=== PATIENT | male | born 1975 | race Caucasian/White ===

== ENCOUNTER 2022-01-02 08:55 | Emergency (ER) | payer SELFPAY ==
[~2022-01-02] VITALS: Ht 177.8 cm; Wt 89.8 kg
[~2022-01-02 08:55] MED LIST: SODIUM CHLORIDE FLUSH 10 ML SYR IV PRN; Z.0.CIPRO500 MG; Z.0.FLAGYL500 MG; Z.0.PRINIVIL20 MG PO; Z.0.ZOFRAN4 MG
[2022-01-02] MEDS ORDERED: ONDANSETRON HCL INJ 2MG/ML 2ML 2 MG/ML VIAL IV STA (09:12)
[2022-01-02] MEDS ORDERED: SODIUM CHLORIDE 0.9% 1000ML 1,000 ML IV ONE (09:15)
[2022-01-02 09:31] LABS: BASOPHILS % 0.2 % (0.0-1.0); HEMATOCRIT 49.7 % (38.2-49.6); HEMOGLOBIN 17.2 g/dL (14.0-18.0); LYMPHOCYTES # (AUTO) 1.8 (1.0-3.2); LYMPHOCYTES % 10.8 % (18.0-39.1); MEAN CORPUSCULAR HEMOGLOBIN 30.8 pg (28-32); MEAN CORPUSCULAR HGB CONC 34.6 g/dL (31-35); MEAN CORPUSCULAR VOLUME 89.1 fL (81-99); MONOCYTES # (AUTO) 1.5 (0.2-0.8); MONOCYTES % 8.9 % (4.4-11.3); NEUTROPHILS # (AUTO) 13.5 (2.1-6.9); NEUTROPHILS % 79.8 % (38.7-80.0); PLATELET COUNT 429 x10e3/uL (140-360); RED BLOOD COUNT 5.58 x10e6/uL (4.3-5.7); RED CELL DISTRIBUTION WIDTH 11.9 % (11.7-14.4)
[2022-01-02 10:22] LABS: ALBUMIN 4.1 g/dL (3.5-5.0); ALBUMIN/GLOBULIN RATIO 1.1 (0.8-2.0); ANION GAP 19.6 mmol/L (8-16); CALCIUM 9.7 mg/dL (8.4-10.2); CREATININE, SERUM 1.06 mg/dL (0.72-1.25); POTASSIUM 3.6 mmol/L (3.5-5.1)
[2022-01-02] MEDS ORDERED: IOPAMIDOL 370 MG/ML 100 ML INFUS..BTL INJ ONE ×2 (10:52→12:10)
[2022-01-02] MEDS ORDERED: ONDANSETRON ODT4 MG PO (11:23)
[2022-01-02 12:07] LABS: CLARITY,URINE CLEAR (CLEAR); COLOR,URINE YELLOW (YELLOW); KETONES,URINE TRACE (NEGATIVE); LEUKOCYTE ESTERASE ,URINE NEGATIVE (NEGATIVE); NITRITE,URINE NEGATIVE (NEGATIVE); PROTEIN,URINE DIPSTICK NEGATIVE (NEGATIVE); URINE UROBILINOGEN 1 mg/dL (0.2 - 1)
== END 2022-01-02 12:35 | disposition home or self-care (01) ==
LOC: ER 09:02
DX: R11.2 Nausea with vomiting, unspecified (principal); E86.0 Dehydration; K57.90 Diverticulosis of intestine, part unspecified, without perforation or abscess without bleeding
CPT/HCPCS: 36415; 74177; 80053; 81001; 83690; 85025; 99284; J2405; J7030; Q9967

== ENCOUNTER 2022-06-03 17:49 | Emergency (ER) | payer BC ==
[~2022-06-03] VITALS: Ht 177.8 cm; Wt 89.8 kg
[~2022-06-03 17:49] MED LIST changes: +ONDANSETRON ODT4 MG PO; -SODIUM CHLORIDE FLUSH 10 ML SYR IV PRN
[2022-06-03] MEDS ORDERED: ONDANSETRON HCL INJ 2MG/ML 2ML 2 MG/ML VIAL IV STA ×2 (18:05→18:35)
[2022-06-03] MEDS ORDERED: SODIUM CHLORIDE 0.9% 1000ML 1,000 ML IV SCH (18:15)
[2022-06-03 18:20] LABS: BASOPHILS % 0.2 % (0.0-1.0); HEMOGLOBIN 17.2 g/dL (14.0-18.0); LYMPHOCYTES # (AUTO) 1.1 (1.0-3.2); LYMPHOCYTES % 7.1 % (18.0-39.1); MEAN CORPUSCULAR HEMOGLOBIN 31.6 pg (28-32); MEAN CORPUSCULAR HGB CONC 33.7 g/dL (31-35); MEAN CORPUSCULAR VOLUME 93.6 fL (81-99); MONOCYTES # (AUTO) 0.7 (0.2-0.8); NEUTROPHILS # (AUTO) 14.2 (2.1-6.9); NEUTROPHILS % 88.3 % (38.7-80.0); PLATELET COUNT 404 x10e3/uL (140-360); RED BLOOD COUNT 5.45 x10e6/uL (4.3-5.7); RED CELL DISTRIBUTION WIDTH 11.9 % (11.7-14.4)
[2022-06-03] MEDS ORDERED: ONDANSETRON HCL INJ 2MG/ML 2ML 2 MG/ML VIAL ONE (18:26)
[2022-06-03] MEDS ORDERED: SODIUM CHLORIDE 0.9% 1000ML 1,000 ML ONE (18:26)
[2022-06-03 18:28] LABS: INR 0.9; PROTHROMBIN TIME 12.4 seconds (11.9-14.5)
[2022-06-03 18:29] LABS: PARTIAL THROMBOPLASTIN TIME 22.9 seconds (23.8-35.5)
[2022-06-03 18:33] LABS: CLARITY,URINE HAZY (CLEAR); COLOR,URINE YELLOW (YELLOW); KETONES,URINE NEGATIVE (NEGATIVE); LEUKOCYTE ESTERASE ,URINE NEGATIVE (NEGATIVE); NITRITE,URINE NEGATIVE (NEGATIVE); PHENCYCLIDINE SCREEN,URINE NEGATIVE (NEGATIVE); PROTEIN,URINE DIPSTICK 2+ (NEGATIVE)
[2022-06-03 18:34] LABS: AMPHETAMINES SCREEN,URINE NEGATIVE (NEGATIVE); BACTERIA,URINE FEW /HPF; BENZODIAZEPINES SCREEN,URINE NEGATIVE (NEGATIVE); EPITHELIAL CELLS,URINE FEW /LPF; RBC,URINE 0-5 /HPF (0-5); URINE UROBILINOGEN 0.2 mg/dL (0.2 - 1); WBC,URINE (MAN) 0-5 /HPF (0-5)
[2022-06-03 18:35] LABS: ALBUMIN 4.7 g/dL (3.5-5.0); ALBUMIN/GLOBULIN RATIO 1.2 (0.8-2.0); ANION GAP 21.8 mmol/L (8-16); CALCIUM 9.8 mg/dL (8.4-10.2); CREATININE, SERUM 1.13 mg/dL (0.72-1.25); POTASSIUM 3.8 mmol/L (3.5-5.1)
[2022-06-03 18:41] LABS: CREATINE KINASE MB 1.3 ng/mL (0-5.0)
[2022-06-03] MEDS ORDERED: Morphine 4mg INJECTION 4 MG/ML INJ IV ONE (18:45)
[2022-06-03 18:57] LABS: LIPASE 20 U/L (8-78)
[2022-06-03] MEDS ORDERED: IOPAMIDOL 370 MG/ML 100 ML INFUS..BTL INJ ONE (18:57)
[2022-06-03] MEDS ORDERED: PROMETHAZINE 12.5MG/ NACL 0.9% 12.5 MG/50 ML BAG IV ONE (20:45)
[2022-06-03] MEDS ORDERED: CIPRO500 MG PO (20:47)
[2022-06-03] MEDS ORDERED: ONDANSETRON ODT4 MG PO (20:47)
[2022-06-03] MEDS ORDERED: METRONIDAZOLE500 MG PO (20:47)
[2022-06-03] MEDS ORDERED: DICYCLOMINE HCL20 MG PO (20:47)
[2022-06-03 21:55] VITALS: BP 146/94
== END 2022-06-03 21:05 | disposition home or self-care (01) ==
LOC: ER 18:07
DX: R10.13 Epigastric pain (principal); K52.9 Noninfective gastroenteritis and colitis, unspecified; R11.2 Nausea with vomiting, unspecified; Z20.822 Contact with and (suspected) exposure to COVID-19
CPT/HCPCS: 36415; 71045; 74177; 80053; 80307; 80320; 81001; 82550; 82553; 83690; 84484; 85025; 85610; 85730; 93005; 99284; J2270; J2405; J2550; J7030; Q9967; U0002

== ENCOUNTER 2022-08-01 10:06 | Emergency (ER) | payer BC ==
[~2022-08-01] VITALS: Ht 177.8 cm; Wt 89.8 kg
[~2022-08-01 10:06] MED LIST changes: +CIPRO500 MG PO; +DICYCLOMINE HCL20 MG PO; +METRONIDAZOLE500 MG PO
[2022-08-01 10:26] LABS: BASOPHILS % 0.2 % (0.0-1.0); EOSINOPHILS # (AUTO) 6.2 (0.0-0.4); HEMATOCRIT 54.7 % (38.2-49.6); HEMOGLOBIN 18.6 g/dL (14.0-18.0); LYMPHOCYTES # (AUTO) 1.9 (1.0-3.2); LYMPHOCYTES % 9.1 % (18.0-39.1); MEAN CORPUSCULAR HEMOGLOBIN 31.2 pg (28-32); MEAN CORPUSCULAR VOLUME 91.6 fL (81-99); MONOCYTES # (AUTO) 1.8 (0.2-0.8); MONOCYTES % 8.7 % (4.4-11.3); NEUTROPHILS # (AUTO) 11.2 (2.1-6.9); NEUTROPHILS % 52.7 % (38.7-80.0); PLATELET COUNT 438 x10e3/uL (140-360); RED BLOOD COUNT 5.97 x10e6/uL (4.3-5.7); RED CELL DISTRIBUTION WIDTH 11.2 % (11.7-14.4)
[2022-08-01] MEDS ORDERED: HALOPERIDOL LACTATE 5 MG/ML VIAL IV ONE (10:30)
[2022-08-01] MEDS ORDERED: LACTATED RINGER'S 1,000 ML INJ ONE ×2 (10:30)
[2022-08-01] MEDS ORDERED: DICYCLOMINE HCL 20 MG/2 ML VIAL IM ONE ×2 (10:30→10:34)
[2022-08-01] MEDS ORDERED: LACTATED RINGER'S 1,000 ML ONE (10:34)
[2022-08-01] MEDS ORDERED: HALOPERIDOL LACTATE 5 MG/ML VIAL ONE (10:34)
[2022-08-01 10:47] LABS: ALBUMIN 4.6 g/dL (3.5-5.0); ALBUMIN/GLOBULIN RATIO 1.1 (0.8-2.0); ANION GAP 22.8 mmol/L (8-16); CALCIUM 9.4 mg/dL (8.4-10.2); CREATININE, SERUM 1.35 mg/dL (0.72-1.25)
[2022-08-01 10:49] LABS: POTASSIUM 2.8 mmol/L (3.5-5.1)
[2022-08-01] MEDS ORDERED: POTASSIUM CHLORIDE 10MEQ/100ML 200 ML IV ONE (11:00)
[2022-08-01 11:02] LABS: LYMPHOCYTES % (MANUAL) 5 % (19-48); MONOCYTES % (MANUAL) 6 % (3.4-9.0); NEUTROPHILS % (MANUAL) 80 % (40-74); PLATELET ESTIMATE ADEQUATE; PLATELET MORPHOLOGY COMMENT NORMAL; RBC MORPHOLOGY COMMENT NORMAL
[2022-08-01] MEDS ORDERED: IOPAMIDOL 370 MG/ML 100 ML INFUS..BTL INJ ONE (11:18)
[2022-08-01] MEDS ORDERED: POTASSIUM CHLORIDE 20 MEQ TAB CR PO ONE (11:30)
[2022-08-01] MEDS ORDERED: KCL 20MEQ/.9 SOD CHL 1,000 ML IV ONE (12:00)
[2022-08-01] MEDS ORDERED: OMEPRAZOLE40 MG PO (12:20)
[2022-08-01] MEDS ORDERED: HALOPERIDOL1 MG PO (12:20)
[2022-08-01 12:21] LABS: CLARITY,URINE CLEAR (CLEAR); COLOR,URINE YELLOW (YELLOW)
[2022-08-01 12:22] LABS: KETONES,URINE NEGATIVE (NEGATIVE); LEUKOCYTE ESTERASE ,URINE NEGATIVE (NEGATIVE); NITRITE,URINE NEGATIVE (NEGATIVE); PROTEIN,URINE DIPSTICK 1+ (NEGATIVE); URINE UROBILINOGEN 0.2 mg/dL (0.2 - 1)
[2022-08-01 12:23] LABS: AMPHETAMINES SCREEN,URINE NEGATIVE (NEGATIVE); BENZODIAZEPINES SCREEN,URINE NEGATIVE (NEGATIVE); PHENCYCLIDINE SCREEN,URINE NEGATIVE (NEGATIVE)
[2022-08-01 12:26] LABS: BACTERIA,URINE FEW /HPF; EPITHELIAL CELLS,URINE FEW /LPF; RBC,URINE 0-5 /HPF (0-5); WBC,URINE (MAN) 0-5 /HPF (0-5)
== END 2022-08-01 13:49 | disposition home or self-care (01) ==
LOC: ER 10:11
DX: R11.2 Nausea with vomiting, unspecified (principal); F12.90 Cannabis use, unspecified, uncomplicated; Z87.19 Personal history of other diseases of the digestive system
CPT/HCPCS: 36415; 74177; 80053; 80307; 81001; 83690; 85025; 99284; C9113; J0500; J1630; J7121; Q9967